=== PATIENT | female | born 1995 | race Two or more races ===

== ENCOUNTER 2021-05-07 00:47 | Inpatient (IN) | payer SELFPAY ==
[~2021-05-07] VITALS: Ht 154.9 cm; Wt 56.7 kg
[2021-05-07] MEDS ORDERED: PROMETHAZINE HCL 25 MG/ML 1ML IV PRN (01:15)
[2021-05-07] MEDS ORDERED: DERMOPLAST 60ML BOTTLE TOP PRN (01:15)
[2021-05-07] MEDS ORDERED: LACTATED RINGER'S 1,000 ML IV SCH (01:15)
[2021-05-07] MEDS ORDERED: BUTORPHANOL TARTRATE 2 MG/1 ML VIAL IV PRN ×2 (01:15)
[2021-05-07] MEDS ORDERED: WITCH HAZEL-GLYCERIN PAD TOP PRN (01:15)
[2021-05-07] MEDS ORDERED: PHISODERM TOP SOLN 240ML BTL TOP PRN (01:15)
[2021-05-07] MEDS ORDERED: LIDOCAINE 2%HCL (LOCAL ANESTH.) INJ 20ML MDV IJ PRN (01:15)
[2021-05-07] MEDS ORDERED: PENICILLIN G POT 5MIL/D5 50ML 50 ML IV ONE (01:30)
[2021-05-07] MEDS ORDERED: TERBUTALINE SULFATE 1 MG/ML 1ML VIAL SC PRN (01:45)
[2021-05-07] MEDS ORDERED: LACT. RINGERS/OXYTOCIN 20UNITS 500 ML IV ONE ×2 (01:45→02:15)
[2021-05-07] MEDS ORDERED: METHYLERGONOVINE MALEATE 0.2 MG/ML AMP IM ONE ×2 (02:07→02:41)
[2021-05-07 02:13] LABS: Basophils # (auto) 0.1 10 ^3/uL (0-0.2); Basophils % (auto) 0.6 % (0.0-2.0); Eosinophils # (auto) 0.1 10 ^3/uL (0-0.8); Eosinophils % (auto) 0.5 % (0.0-7.0); Hemoglobin 12.7 g/dL (12.2-16.2); Lymphocytes # (auto) 3.5 10 ^3/uL (0.4-5.4); Lymphocytes % (auto) 25.5 % (10.0-50.0); Mean Corpuscular Hemoglobin 31.2 pg (28.0-32.0); Mean Corpuscular Hgb Conc. 34.2 g/dL (32.0-36.0); Mean Corpuscular Volume 91.2 fL (80.0-100.0); Monocytes # (auto) 0.8 10 ^3/uL (0-1.3); Monocytes % (auto) 5.4 % (0.0-12.0); Neutrophils # (auto) 9.4 10 ^3/uL (1.6-8.6); Nucleated Red Blood Cells % 0.1 %; Red Blood Cells 4.06 10^6/uL (4.0-5.20); Red Cell Distribution Width 13.3 % (11.8-14.3); White Blood Cell 13.9 10^3/uL (4.4-10.8)
[2021-05-07] MEDS ORDERED: METHYLERGONOVINE MALEATE 0.2 MG/ML AMP IM PRN (02:15)
[2021-05-07 02:19] LABS: INR 0.97 (0.9-1.15); Partial Thromboplastin Time 27.3 sec (23.6-33.0)
[2021-05-07 02:27] LABS: BUN/Creatinine Ratio 13.7; Calcium 8.8 mg/dL (8.5-10.1); Potassium 3.9 mmol/L (3.5-5.1)
[2021-05-07] MEDS ORDERED: LIDOCAINE 2%HCL (LOCAL ANESTH.) INJ 20ML MDV ONE (02:31)
[2021-05-07 02:35] LABS: Albumin 3.2 g/dL (3.4-5.0); Bilirubin, Total 0.4 mg/dL (0.2-1.0); Total Protein 6.4 g/dL (6.4-8.2)
[2021-05-07 03:30] LABS: Uric Acid 4.3 mg/dL (2.6-6.0)
[2021-05-07 04:26] LABS: Urine Bacteria NONE SEEN /hpf (None Seen); Urine Blood 1+ /uL (Negative); Urine Mucus FEW (None Seen); Urine WBC 4 /hpf (0 - 5)
[2021-05-07 04:29] LABS: Amphetamine Screen, Urine NEGATIVE (NEGATIVE); Barbiturate Scree,Urine NEGATIVE (NEGATIVE); Benzodiazephine Screen, Urine NEGATIVE (NEGATIVE); Cannabinoid Screen, Urine NEGATIVE (NEGATIVE); Cocaine Screen, Urine NEGATIVE (NEGATIVE)
[2021-05-07 04:32] LABS: Alcohol, Urine < 3.0 mg/dL (0-10); Opiate Scree,Urine NEGATIVE (NEGATIVE); Phencyclidine Screen, Urine NEGATIVE (NEGATIVE)
[2021-05-07] MEDS ORDERED: PENICILLIN G POTASSIUM 2,500,000 UNITS in D5W 5% 50 ML IV SCH (05:45)
[2021-05-07] MEDS: ceFAZolin 1GM/50ML 50 ML IV SCH ×3 (05:56→21:40)
[2021-05-07] MEDS ORDERED: IBUPROFEN 600 MG TAB PO PRN (06:00)
[2021-05-07] MEDS ORDERED: ACETAMINOPHEN 325 MG TAB PO PRN (06:00)
[2021-05-07] MEDS ORDERED: ONDANSETRON ODT 4 MG TAB PO PRN (06:00)
[2021-05-07] MEDS: IBUPROFEN 800 MG TAB PO SCH ×3 (06:15→18:00)
[2021-05-07 07:03] VITALS: BP 94/60
[2021-05-07] MEDS: DOCUSATE SOD 100 MG CAP PO SCH ×2 (10:36→21:40)
[2021-05-07 11:00] VITALS: BP 91/51
[2021-05-07 15:20] VITALS: BP 91/59
[2021-05-07 19:00] VITALS: BP 103/64
[2021-05-07 23:01] VITALS: BP 93/57
[2021-05-08 03:00] VITALS: BP 90/49
[2021-05-08] MEDS: ceFAZolin 1GM/50ML 50 ML IV SCH (05:30)
[2021-05-08] MEDS: IBUPROFEN 800 MG TAB PO SCH ×2 (05:30)
[2021-05-08 07:03] VITALS: BP 105/66
[2021-05-08 11:30] VITALS: BP 107/65
[2021-05-08] MEDS: DOCUSATE SOD 100 MG CAP PO SCH (11:48)
[2021-05-09 06:03] LABS: RPR Non Reactive (Non Reactive); Rubella Antibodies, IgG 1.27 index (Immune >0.99)
== END 2021-05-08 13:18 | disposition home or self-care (01) | DRG 807 ==
LOC: LDRP 00:47 → OBSVTOIN 01:02 → LDRP 01:03
PROVIDERS: ADMIT Obstetrics & Gynecology; ATTEND Obstetrics & Gynecology
PROC: 10D07Z6 Extraction of Products of Conception, Vacuum, Via Natural or Artificial Opening (ICD-10-PCS; principal; 2021-05-07)
PROC: 0KQM0ZZ Repair Perineum Muscle, Open Approach (ICD-10-PCS; 2021-05-07)
PROC: 0W8NXZZ Division of Female Perineum, External Approach (ICD-10-PCS; 2021-05-07)
DX: O70.1 Second degree perineal laceration during delivery (principal); Z37.0 Single live birth; Z20.822 Contact with and (suspected) exposure to COVID-19; Z3A.37 37 weeks gestation of pregnancy; O76 Abnormality in fetal heart rate and rhythm complicating labor and delivery
CPT/HCPCS: 36415; 59025; 59409; 76805; 80053; 80307; 81001; 84112; 84550; 85025; 85610; 85730; 86592; 86703; 86762; 86850; 86900; 86901; 87340; 87426; 94760; 96360; 96361; 96365; 96366; 96372; G0378; J0690; J2540; J2590; J7060